=== PATIENT | male | born 1975 | race Caucasian/White ===

== ENCOUNTER 2019-02-11 10:34 | Emergency (ER) | payer MEDICAID ==
[~2019-02-11] VITALS: Ht 175.3 cm; Wt 77.3 kg
[2019-02-11] MEDS ORDERED: ONDANSETRON HCL 4 MG/2 ML VIAL IM ONE (12:00)
[2019-02-11] MEDS ORDERED: MECLIZINE HCL 25 MG TABLET PO ONE (12:00)
[2019-02-11] MEDS ORDERED: ACETAMINOPHEN 500 MG TABLET PO ONE (12:00)
[2019-02-11] MEDS ORDERED: SODIUM CHLORIDE 0.9% 1,000 ML IV ONE (12:15)
[2019-02-11 13:56] VITALS: BP 122/74
== END 2019-02-11 14:07 | disposition home or self-care (01) ==
LOC: EMS 10:34
DX: S93.692A Other sprain of left foot, initial encounter (principal); R42 Dizziness and giddiness; H92.02 Otalgia, left ear; X50.9XXA Other and unspecified overexertion or strenuous movements or postures, initial encounter; Y93.89 Activity, other specified; Y92.89 Other specified places as the place of occurrence of the external cause; Y99.8 Other external cause status
CPT/HCPCS: 73630; 96360; 96372; 99283; J2405; J7030